=== PATIENT | male | born 1985 | race Caucasian/White ===

== ENCOUNTER → 2017-07-07 | Outpatient (CLI) | payer OTHER ==
[2017-07-07 12:26] LABS: AST/SGOT 12 U/L (15-37); BLOOD UREA NITROGEN 22 mg/dl (7-18); BUN/CREATININE RATIO 19.7 (10-20); CARBON DIOXIDE 29 mmol/L (21-32); CHLORIDE 105 mmol/L (98-107); GLUCOSE 81 mg/dl (70-99); POTASSIUM 3.9 mmol/L (3.5-5.1); SODIUM 141 mmol/L (136-145)
[2017-07-07 12:29] LABS: ALB/GLOB RATIO 1.2 (0.9-2); ALKALINE PHOSPHATASE 59 U/L (45-117); ALT/SGPT 26 U/L (12-78); CHOLESTEROL 210 mg/dl (0-200); HDL CHOLESTEROL 35 mg/dl; LDL CHOLESTEROL CALCULATED 161 mg/dl; TRIGLYCERIDES 71 mg/dl (0-150); VERY LOW DENSITY LIPOPROT CALC 14 mg/dl
== END | disposition home or self-care (01) ==
LOC: C.LAB 10:49
PROVIDERS: ATTEND Family Medicine Adult Medicine
DX: Z00.00 Encounter for general adult medical examination without abnormal findings (principal); Z13.220 Encounter for screening for lipoid disorders

== ENCOUNTER → 2018-06-28 | Outpatient (CLI) | payer OTHER ==
[~2018-06-28] MED LIST: CETI10TA10 PO; MULT-506 PO; PROB1TAB16 PO
[2018-06-28 13:13] LABS: BASO % 0.6 %; BASO ABS # 0.03 K/uL (0-0.2); EOS % 2.1 %; HEMATOCRIT 42.6 % (42-52); HEMOGLOBIN 14.9 g/dL (14.0-18.0); IG# 0.01 K/uL (0.00-0.02); LYMPH % 44.1 %; LYMPH ABS # 2.09 K/uL (1.2-3.4); MEAN CELL VOLUME 87.5 fL (80-100); MEAN CORPUSCULAR HEMOGLOBIN 30.6 pg (25-34); MEAN PLATELET VOLUME 9.4 fL (7.4-10.4); MONO % 8.9 %; MONO ABS # 0.42 K/uL (0.11-0.59); NEUT % 44.1 %; NEUT ABS # 2.09 K/uL (1.4-6.5); PLATELET COUNT 171 K/uL (130-400); RED CELL DISTRIBUTION WIDTH CV 13.6 % (11.5-14.5); RED CELL DISTRIBUTION WIDTH SD 43.6 fL (36.4-46.3); WHITE BLOOD COUNT 4.74 K/uL (4.8-10.8)
== END | disposition home or self-care (01) ==
LOC: C.LAB 12:09
PROVIDERS: ATTEND Registered Nurse
DX: Z00.00 Encounter for general adult medical examination without abnormal findings (principal); R10.9 Unspecified abdominal pain

== ENCOUNTER → 2018-07-12 | Day surgery (SDC) | payer OTHER ==
[2018-07-04 14:12] VITALS: Ht 174 cm; Wt 84.1 kg
[~2018-07-12] VITALS: Ht 174 cm; Wt 84.1 kg
[~2018-07-12] MED LIST changes: +LIDOCAINE HCL 2% 2 ML VIAL (20MG/ML) ONE; +MIDAZOLAM HCL 1 MG/ML 2ML VIAL ONE; +ONDANSETRON INJ 2 MG/ML 2 ML VIAL ONE; +PROPOFOL IV EMULSION 10 MG/ML 20 ML VIAL ONE; +SODIUM CHLORIDE 0.9% 500ML 500 ML IV ONE
--- NOTE | 2018-07-12 10:01 | Endo History and Physical ---
History & Physical Date of Service: Jul 12, 2018. Chief Complaint: Rectal Bleed Referring Physician: Nathalie Bojorquez History of Present Illness 32 yo CM who presents for colonoscopy secondary to rectal bleeding. Past Surgical History Hx Cardiac Surgery: No Hx Internal Defibrillator: No Hx Pacemaker: No Hx Abdominal Surgery: No Hx of Implantable Prosthesis: No Hx Post-Op Nausea and Vomiting: No Hx Cancer Surgery: No Hx Thoracic Surgery: No Hx Orthopedic: No Hx Urinary Tract Surgery: No Family History None Social History Smoking Status: Never Smoker Hx Substance Use: No Hx Alcohol Use: Yes (INFREQUENTLY) Allergies Coded Allergies: No Known Allergies (Unverified , 07/12/18) Current Medications Reported Home Medications Medications Dose Route/Sig Max Daily Dose Days Date Category Probiotic (Probiotic Product) 1 Tab Tab 1 Tab PO DAILY 07/04/18 Reported Multivitamin (Multivitamins) Tab 1 Tab PO DAILY 07/04/18 Reported Zyrtec (Cetirizine Hcl) 10 Mg Tab 10 Mg PO QAM 07/04/18 Reported Vital Signs Weight (Kilograms): 84.09 Height (Feet): 5 Height (Inches): 8.5 Physical Exam General Appearance: WD/WN, no apparent distress Respiratory/Chest: Auscultation: breath sounds normal Cardiovascular: Heart Auscultation: RRR Abdomen: Bowel Sounds: normal Inspection & Palpation: soft, non-distended, no tenderness, guarding & rebound Assessment and Plan Assessment: 32 yo CM who presents for colonoscopy secondary to rectal bleeding. Plan: Proceed with colonoscopy.
--- NOTE | 2018-07-12 10:59 | GI REPORT ---
Patient Name: Cesar Corral Procedure Date: 07/12/2018 10:11 AM Date of : 1985 Admit Type: Outpatient Age: 32 Gender: Male Attending MD: Gilbert Sierra DO Procedure: Colonoscopy Providers: Gilbert Sierra DO Referring MD: Lolita Gregg Indications: Rectal bleeding Medicines: Monitored Anesthesia Care Complications: No immediate complications. Estimated Blood Loss: Estimated blood loss: none. Procedure: Pre-Anesthesia Assessment: - Prior to the procedure, a History and Physical was performed, and patient medications and allergies were reviewed. The patient's tolerance of previous anesthesia was also reviewed. The risks and benefits of the procedure and the sedation options and risks were discussed with the patient. All questions were answered, and informed consent was obtained. Prior Anticoagulants: The patient has taken no previous anticoagulant or antiplatelet agents. ASA Grade Assessment: II - A patient with mild systemic disease. After reviewing the risks and benefits, the patient was deemed in satisfactory condition to undergo the procedure. After I obtained informed consent, the scope was passed under direct vision. Throughout the procedure, the patient's blood pressure, pulse, and oxygen saturations were monitored continuously. The Scope was introduced through the anus and advanced to the terminal ileum. The colonoscopy was performed without difficulty. The patient tolerated the procedure well. The quality of the bowel preparation was good. The terminal ileum, ileocecal valve, appendiceal orifice, and rectum were photographed. Findings: The perianal and digital rectal examinations were normal. Non-bleeding internal hemorrhoids were found during retroflexion. The hemorrhoids were small. Impression: - Non-bleeding internal hemorrhoids. - No specimens collected. Recommendation: - Resume previous diet. - Continue present medications. - Repeat colonoscopy at age 49 for surveillance. - Return to primary care physician as previously scheduled. Gilbert Sierra DO 07/12/2018 10:59:33 AM This report has been signed electronically. Note Initiated On: 07/12/2018 10:11 AM Number of Addenda: 0 I attest to the content of the Intraoperative Record and orders documented therein, exceptions below {[id number]}
--- NOTE | 2018-07-12 11:00 | Discharge Instructions ---
Endoscopy Patient Instructions Date / Procedure(s) Performed Jul 12, 2018. Colonoscopy Allergy Information Coded Allergies: No Known Allergies (Unverified , 07/12/18) Discharge Date / Findings Jul 12, 2018. Internal hemorrhoids Medication Instructions OK to resume all medications today as prescribed Reported Home Medications Medications Dose Route/Sig Max Daily Dose Days Date Category Probiotic (Probiotic Product) 1 Tab Tab 1 Tab PO DAILY 07/04/18 Reported Multivitamin (Multivitamins) Tab 1 Tab PO DAILY 07/04/18 Reported Zyrtec (Cetirizine Hcl) 10 Mg Tab 10 Mg PO QAM 07/04/18 Reported Provider Instructions Activity Restrictions - No exercising or heavy lifting for 24 hours. - Do not drink alcohol the day of the procedure. - Do not drive a car or operate machinery until the day after the procedure. - Do not make any important decisions or sign important papers in 24 hours after the procedure. Following Day: - Return to full activity which may include returning to work/school. Diet Start your diet with liquids and light foods (jello, soup, juice, toast). Then eat your usual diet if not nauseated. Treatment For Common After Affects For mild abdominal pain, bloating, or excessive gas: - Rest - Eat lightly - Lie on right side Follow-Up Information Follow-up with Nathalie Bojorquez as scheduled Anesthesia Information What You Should Know You have had a procedure that required some medicine to reduce anxiety and discomfort. This treatment is called moderate sedation. After receiving the treatment, you may be sleepy, but you will be able to breathe on your own. The effects of the treatment may last for several hours. Follow these instructions along with Activity/Diet recommendations noted above: * Do NOT do anything where dizziness or clumsiness would be dangerous. * Rest quietly at home today, then you can be up and about tomorrow. * Have a responsible person stay with you the rest of today. * You may have had an I.V. today. If so, you may take the dressing off later today. Recommendations Call your doctor if: * Trouble breathing * Continuous vomiting for more than 24 hours * Temperature above 101 degrees * Severe abdominal pain or bloating * Pain not relieved by pain medicine ordered * There is increased drainage or redness from any incision * A large amount of rectal bleeding greater than 2-3 tablespoons. (If you had a polyp/s removed or have hemorrhoids, a small amount of blood - from the rectum is to be expected.) * You have any unanswered questions or concerns. IN THE EVENT OF A SERIOUS EMERGENCY, GO TO THE NEAREST EMERGENCY ROOM Your discharge instructions were prepared by provider Gilbert Sierra. Patient Instructions Signature Page Cesar Corral Patient (or Guardian) Signature/Date: I have read and understand the instructions given to me by my caregivers. Caregiver/RN/Doctor Signature/Date: The above-named patient and/or guardian has received patient instructions on this date. + Original Patient Signature Page (only) stays with chart. Please make copy for patient.
[2018-07-12 11:31] VITALS: BP 157/109; PULSE 62; O2SAT 99
--- NOTE | 2018-07-12 11:42 | Anesthesiology Progress Note ---
Anesthesia Post Op Note Date & Time Jul 12, 2018 at 11:42 Vital Signs Pain Intensity: 0 Vital Signs Past 12 Hours Date Time Temp Pulse Resp B/P (MAP) Pulse Ox O2 Delivery O2 Flow Rate FiO2 07/12/18 11:31 62 18 157/109 (125) 99 Room Air 07/12/18 11:16 63 18 147/95 (112) 99 Room Air 07/12/18 11:01 82 16 143/92 (109) 95 Room Air 07/12/18 10:01 36.8 69 18 140/104 (116) 95 Room Air Notes Mental Status: alert / awake / arousable, participated in evaluation Pt Amnestic to Procedure: Yes Nausea / Vomiting: adequately controlled Pain: adequately controlled Airway Patency, RR, SpO2: stable & adequate BP & HR: stable & adequate Hydration State: stable & adequate Anesthetic Complications: no major complications apparent
== END | disposition home or self-care (01) ==
LOC: C.GI 09:25
PROVIDERS: ATTEND Internal Medicine
DX: K62.5 Hemorrhage of anus and rectum (principal); K64.8 Other hemorrhoids

== ENCOUNTER 2021-06-02 23:35 | Inpatient (IN) ==
[2021-06-02] MEDS ORDERED: KETOROLAC 30 MG/ML VIAL IV STA (23:56)
[2021-06-02] MEDS ORDERED: SODIUM CHLORIDE 0.9% 1000ML 1,000 ML IV ONE (23:56)
--- NOTE | 2021-06-02 23:58 | Emergency Department Note ---
Impression & Plan Sepsis, Lactic acidosis, Inguinal lymphadenopathy, Cellulitis of left leg ED Provider Note Name: MIRNA ROBLEDO Age: 35 Sex: M Arrives Via: Walk-In Informant: Patient ED Provider: Aman Onofre MD Chief Complaint: Chills Impression: Sepsis Lactic Acidosis Inguinal Lymphadenopathy Cellulitis left lower leg Medical Decision Makin yr old male with history of HTN, anxiety/depression, previous rectal fissure, IBS arrives with shaking chills. He is tachy, febrile and having rigors on arrival. Just had Tylenol about 1-2 hours prior to arrival. History of HTN, HLP, Anxiety/depression though no previous infectious issues other than rectal fissure requiring repair. He does look quite ill on arrival and thus on arrival cultures, lactate and sepsis work-up initiated. CXR without clear infiltrate. Labs with mild wbc elevation, modest lactate elevation. Covid negative as are Lyme and initial anaplasmosis. LFTs normal and normal platelets which makes me think tick borne less likely. He was given 3L NSS bolus along with empiric IV abx of zosyn/vanco. I did carefully give him a small dose of antihypertensive given he did not take evening meds and is quite hypertensive with slight improvement. Repeat Lactate is slightly higher than initially and thus further fluids as well as I discussed case with [facility] who agree with current treatment course. With continued fever and lactic acid elevation felt further imaging indicated thus CT c/a/p obtained. No PE nor pneumonia though there is evidence of lymphadenopathy inguinal and retroperitoneal. US left leg without DVT shows left inguinal lymphadenopathy. There is no evidence nec fasc nor crepitus nor fluctuance on left leg exam though he does have small abrasion left dotson with some lymphadenopathy above it, though no surrounding erythema/cellulitis definitively appreciated. Remained tachy though did improve some more with IV fluids, and eventually able to give him a dose IV tylenol once 6 hours post BUSINESS [employer] Tyelnol dose. Mild hypoxia noted which I suspect is BENITA related. Hospitalist in to evaluate further. Prior Medical Record and Triage/Nursing Notes reviewed by Me Additional history obtained from Patient's father Differentials:Viral syndrome, otitis, pharyngitis, pneumonia, influenza, meningitis, urinary tract infection, sepsis, bacteremia, as well as other pathologies. Vital Signs: reviewed and remarkable for fever, tachycardia Interventions: saline lock, nss bolus 4L IV + NSS gtt, zosyn 4.5gm iv, vanco 2gm iv, toradol iv, tylenol 1gm IV Labs:Reviewed and remarkable for elevated wbc, elevated lactate Imaging:X ray results are stated below per my interpretation: Chest: 1 view: No infiltrate, no effusion, normal cardiac border. [facility] Radiologist interpretation reviewed by me: CT Chest angio: no acute findings. CT A/P w iv: lymphadenopathy inguinal and retroperitoneal Cardiac/Tele Monitoring: Cardiac Monitoring: An Order was placed for continuous cardiac monitoring. The monitor shows a rate of 130 with a sinus tach rhythm. Consults:Dr Cherrie PRESSLEY Hospitalist Plan: Disposition:Hospitalization. Condition: Good History of Present Illness:35 yr old male arrives for evaluation of shaking chills. Patient notes feeling well throughout the day with sudden onset acute shaking chills. Notes feeling very weak and chills. Rapidly worsening. Took Tylenol at 11pm without improvement and came to ED for evaluation. Notes some chronic abdominal discomfort with IBS though minimal change from baseline. Notes left dotson abrasion which has been causing issues the last two weeks. States that he has been having cramping behind left thigh and in to groin for the last few days as well. No nausea, vomiting, syncope, headache, neck pain, neck stiffness, rashes, urinary/bowel issues, bruising, sob, chest pain, cough, runny nose, sore throat nor other symptoms. Nothing makes better nor worse. Notes seeing frequent ticks at his home but no recent tick bites noted. ROS: See above HPI for pertinent positives & negatives. A total of 10 systems reviewed and were otherwise negative. Past Medical History:Anxiety/Depression, HTN, GERD, HLP, IBS, Allergies Past Surgical History:Rectal Fissure (denies issues in last few years) Family History:as below Social History:Works in hospital IT, no drugs Home Medications:See Below Allergies:NKDA Vitals:Blood Pressure: 199/132, Pulse 111, RR 20, T 38.3C, O2 94% on RA Physical Exam: GENERAL: Patient is uncomfortable appearing and in mild distress. Very tired appearing and a bit shaky EYES: No scleral icterus, unremarkable pupils. ENT: Mucous membranes moist, no nasal congestion. NECK: No masses appreciated, nomeningismus, trachea is midline. RESPIRATORY: No dyspnea. Clear to auscultation and equal bilaterally. No wheeze, no rhonchi. CARDIOVASCULAR: Tachy.No murmurs, rubs, gallops appreciated. GASTROINTESTINAL: Abdomen soft, non-tender, no peritonitis.Bowel sounds positive.No masses appreciated. BACK: No midline tenderness, no CVA tenderness EXTREMITIES: Normal motion all extremities, no cyanosis, no edema. NEUROLOGIC: Alert and oriented, no acute motor or sensory deficits, no focal weakness, cranial nerves grossly intact. SKIN: No rash, no jaundice, no diaphoresis. PSYCH: Appropriate GCS: 15 ED Course: Times/Reassessments: gradual improvement in symptoms and HR Aman Onofre MD Past Med/Surg History Medical History Allergic rhinitis Anxiety and depression Chronic reflux esophagitis Hyperlipidemia LDL goal <130 Hypertension IBS (irritable bowel syndrome) Neurofibroma Surgical History History of rectal fissure Family History Grandmother (Paternal) Breast cancer Grandfather (Maternal) Skin cancer Father Thyroid disease Grandfather (Paternal) Myocardial infarction Denies family history of Ovarian cancer Prostate cancer Colorectal cancer Social History Smoking Status: Never smoker Second Hand Exposure: No; Hx Alcohol Use: Yes Alcohol type: hard liquor Alcohol Intake Frequency: Monthly or Less Hx Substance Use: No Preferred Language: Cuban Communication Ability: Effective Visual Impairment: Limited Hearing Ability: Normal 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 marital status: Current Living Situation: Spouse and Family Current Living Situation Comment: and two children current occupational status: employed current occupation: it security analyst at [employer] How many Children do You have: 3 Feels Safe at Home: Yes Childhood Exposure to Second-Hand Smoke: No caffeine: Yes Dental Care, Regularly: No Physical Activity Frequency: 3-4 Times per Week Seatbelt Use: always Sunscreen Use: Yes Allergies Allergies Allergy/AdvReac Type Severity Reaction Status Date / Time No Known Allergies Allergy Verified 06/03/21 01:21 Home Meds Home Medications Medication Instructions Recorded Confirmed multivitamin 1 tab PO DAILY 06/17/19 06/03/21 Previous Rx's Medication Instructions Recorded bupropion HCl 300 mg 24 hr tablet, 300 mg PO QAM #30 tab 04/25/21 extended release buspirone 10 mg tablet 10 mg PO BID #180 tab 04/25/21 hydrochlorothiazide 12.5 mg tablet 12.5 mg PO DAILY #30 tab 04/25/21 metoprolol succinate 100 mg 100 mg PO DAILY #90 tab 04/25/21 tablet,extended release 24 hr Results & Data (ED) Vital Signs Vital Signs - 24 hr 06/02/21 23:37 06/03/21 00:30 06/03/21 01:00 Temperature 38.3 C H Temperature Source Temporal Artery Scan Pulse Rate 111 H Pulse Rate [Apical] 109 H 109 H Pulse Rate from SpO2 Sensor Respiratory Rate 20 24 24 Respiratory Depth Normal Blood Pressure 199/132 H Blood Pressure [Right Arm] 180/117 H 185/110 H Blood Pressure Mean 154 Blood Pressure Mean [Right Arm] 138 135 Pulse Oximetry 94 95 95 Oxygen Delivery Method Room Air Oxygen Flow Rate Sepsis Recent Fever Within 48 Hours Yes Sepsis New/Unexplained Change in Mental Status N/A Sepsis Action Taken by Nursing No Action Required 06/03/21 01:18 06/03/21 01:30 06/03/21 02:00 Temperature Temperature Source Pulse Rate 117 H 117 H Pulse Rate [Apical] 118 H Pulse Rate from SpO2 Sensor 118 H 117 H Respiratory Rate 26 H 22 24 Respiratory Depth Blood Pressure 177/115 H 176/109 H Blood Pressure [Right Arm] 168/124 H Blood Pressure Mean 135 131 Blood Pressure Mean [Right Arm] 138 Pulse Oximetry 94 96 94 Oxygen Delivery Method Room Air Room Air Oxygen Flow Rate Sepsis Recent Fever Within 48 Hours Sepsis New/Unexplained Change in Mental Status Sepsis Action Taken by Nursing 06/03/21 02:34 06/03/21 02:58 06/03/21 04:03 Temperature 38.4 C H Temperature Source Oral Pulse Rate 127 H 125 H Pulse Rate [Apical] Pulse Rate from SpO2 Sensor 127 H 125 H Respiratory Rate 26 H 17 Respiratory Depth Blood Pressure 145/95 H 160/98 H Blood Pressure [Right Arm] Blood Pressure Mean 111 118 Blood Pressure Mean [Right Arm] Pulse Oximetry 95 95 Oxygen Delivery Method Room Air Oxygen Flow Rate Sepsis Recent Fever Within 48 Hours Sepsis New/Unexplained Change in Mental Status Sepsis Action Taken by Nursing 06/03/21 04:30 06/03/21 05:00 06/03/21 05:30 Temperature Temperature Source Pulse Rate 116 H 115 H 113 H Pulse Rate [Apical] Pulse Rate from SpO2 Sensor 116 H 115 H 113 H Respiratory Rate 29 H 29 H 27 H Respiratory Depth Blood Pressure 146/93 H 155/84 H 131/87 Blood Pressure [Right Arm] Blood Pressure Mean 110 107 101 Blood Pressure Mean [Right Arm] Pulse Oximetry 92 92 92 Oxygen Delivery Method Room Air Nasal Cannula Room Air Oxygen Flow Rate 2 2 Sepsis Recent Fever Within 48 Hours Sepsis New/Unexplained Change in Mental Status Sepsis Action Taken by Nursing 06/03/21 06:00 06/03/21 06:30 06/03/21 07:20 Temperature 37.1 C Temperature Source Pulse Rate 114 H 115 H Pulse Rate [Apical] 107 H Pulse Rate from SpO2 Sensor 115 H 116 H Respiratory Rate 30 H 20 20 Respiratory Depth Blood Pressure 138/85 129/84 Blood Pressure [Right Arm] 152/75 H Blood Pressure Mean 102 99 Blood Pressure Mean [Right Arm] 100 Pulse Oximetry 93 95 95 Oxygen Delivery Method Room Air Nasal Cannula Room Air Oxygen Flow Rate 2 2 Sepsis Recent Fever Within 48 Hours Sepsis New/Unexplained Change in Mental Status Sepsis Action Taken by Nursing Laboratory Data Result diagrams: 06/02/21 23:59 06/02/21 23:59 Lab Results 06/02/21 06/02/21 06/02/21 Range/Units 23:59 23:59 23:59 WBC 14.13 H (4.8-10.8) K/uL RBC 5.06 (4.7-6.1) M/uL Hgb 15.6 (14.0-18.0) g/dL Hct 44.8 (42-52) % MCV 88.5 (80-100) fL MCH 30.8 (25-34) pg MCHC 34.8 (32-36) g/dL RDW Std Deviation 40.4 (36.4-46.3) fL RDW Coeff of Dennis 12.6 (11.5-14.5) % Plt Count 225 (130-400) K/uL MPV 9.9 (7.4-10.4) fL Immature Gran % (Auto) 0.3 % Neut % (Auto) 83.6 % Lymph % (Auto) 10.2 % Morton % (Auto) 5.0 % Eos % (Auto) 0.8 % Baso % (Auto) 0.1 % Neut # (Auto) 11.81 H (1.4-6.5) K/uL Lymph # (Auto) 1.44 (1.2-3.4) K/uL Morton # (Auto) 0.70 H (0.11-0.59) K/uL Eos # (Auto) 0.12 (0-0.5) K/uL Baso # (Auto) 0.02 (0-0.2) K/uL Immature Gran # (Auto) 0.04 H (0.00-0.02) K/uL Sodium 137 (136-145) mmol/L Potassium 3.6 (3.5-5.1) mmol/L Chloride 106 (98-107) mmol/L Carbon Dioxide 28 (21-32) mmol/L Anion Gap 3.0 (3-11) BUN 22 H (7-18) mg/dl Creatinine 1.24 (0.6-1.4) mg/dl Est Cr Clr Drug Dosing 103.4 ml/min Est GFR ( Amer) 86.1 ml/min Est GFR (Non-Af Amer) 74.3 ml/min BUN/Creatinine Ratio 17.4 (10-20) Glucose 98 (70-99) mg/dl Lactate 2.2 H* (0.4-2.0) mmol/L Calcium 8.7 (8.5-10.1) mg/dl Total Bilirubin 0.4 (0.2-1) mg/dl Direct Bilirubin (0-0.2) mg/dl AST 25 (15-37) U/L ALT 40 (12-78) U/L Alkaline Phosphatase 81 (45-117) U/L Troponin I < 0.015 (0-0.045) ng/ml Total Protein 7.3 (6.4-8.2) gm/dl Albumin 3.7 (3.4-5.0) gm/dl Lipase 107 (73-393) U/L Procalcitonin (0-0.5) ng/ml Specimen Hemolysis Urine Color Urine Appearance (Clear) Urine pH (4.5-7.5) Ur Specific Garibaldi (1.000-1.030) Urine Protein (Negative) Urine Glucose (UA) (Negative) Urine Ketones (Negative) Urine Blood (Negative) Urine Nitrite (Negative) Urine Bilirubin (Negative) Urine Urobilinogen (Negative) Ur Leukocyte Esterase (Negative) Anaplasma Smear See Comment Lyme Disease IgG Ab (Negative) Lyme Disease IgM Ab (Negative) COVID-19 Eval Order SARS-CoV-2 (PCR) (Negative) 06/02/21 06/03/21 06/03/21 Range/Units 23:59 00:01 00:01 WBC (4.8-10.8) K/uL RBC (4.7-6.1) M/uL Hgb (14.0-18.0) g/dL Hct (42-52) % MCV (80-100) fL MCH (25-34) pg MCHC (32-36) g/dL RDW Std Deviation (36.4-46.3) fL RDW Coeff of Dennis (11.5-14.5) % Plt Count (130-400) K/uL MPV (7.4-10.4) fL Immature Gran % (Auto) % Neut % (Auto) % Lymph % (Auto) % Morton % (Auto) % Eos % (Auto) % Baso % (Auto) % Neut # (Auto) (1.4-6.5) K/uL Lymph # (Auto) (1.2-3.4) K/uL Morton # (Auto) (0.11-0.59) K/uL Eos # (Auto) (0-0.5) K/uL Baso # (Auto) (0-0.2) K/uL Immature Gran # (Auto) (0.00-0.02) K/uL Sodium (136-145) mmol/L Potassium (3.5-5.1) mmol/L Chloride (98-107) mmol/L Carbon Dioxide (21-32) mmol/L Anion Gap (3-11) BUN (7-18) mg/dl Creatinine (0.6-1.4) mg/dl Est Cr Clr Drug Dosing ml/min Est GFR ( Amer) ml/min Est GFR (Non-Af Amer) ml/min BUN/Creatinine Ratio (10-20) Glucose (70-99) mg/dl Lactate (0.4-2.0) mmol/L Calcium (8.5-10.1) mg/dl Total Bilirubin (0.2-1) mg/dl Direct Bilirubin (0-0.2) mg/dl AST (15-37) U/L ALT (12-78) U/L Alkaline Phosphatase (45-117) U/L Troponin I (0-0.045) ng/ml Total Protein (6.4-8.2) gm/dl Albumin (3.4-5.0) gm/dl Lipase (73-393) U/L Procalcitonin < 0.05 (0-0.5) ng/ml Specimen Hemolysis Urine Color Urine Appearance (Clear) Urine pH (4.5-7.5) Ur Specific Garibaldi (1.000-1.030) Urine Protein (Negative) Urine Glucose (UA) (Negative) Urine Ketones (Negative) Urine Blood (Negative) Urine Nitrite (Negative) Urine Bilirubin (Negative) Urine Urobilinogen (Negative) Ur Leukocyte Esterase (Negative) Anaplasma Smear Lyme Disease IgG Ab Negative (Negative) Lyme Disease IgM Ab Negative (Negative) COVID-19 Eval Order Covid19 at [facility] SARS-CoV-2 (PCR) NEGATIVE (Negative) 06/03/21 06/03/21 Range/Units 00:16 02:28 WBC (4.8-10.8) K/uL RBC (4.7-6.1) M/uL Hgb (14.0-18.0) g/dL Hct (42-52) % MCV (80-100) fL MCH (25-34) pg MCHC (32-36) g/dL RDW Std Deviation (36.4-46.3) fL RDW Coeff of Dennis (11.5-14.5) % Plt Count (130-400) K/uL MPV (7.4-10.4) fL Immature Gran % (Auto) % Neut % (Auto) % Lymph % (Auto) % Morton % (Auto) % Eos % (Auto) % Baso % (Auto) % Neut # (Auto) (1.4-6.5) K/uL Lymph # (Auto) (1.2-3.4) K/uL Morton # (Auto) (0.11-0.59) K/uL Eos # (Auto) (0-0.5) K/uL Baso # (Auto) (0-0.2) K/uL Immature Gran # (Auto) (0.00-0.02) K/uL Sodium (136-145) mmol/L Potassium (3.5-5.1) mmol/L Chloride (98-107) mmol/L Carbon Dioxide (21-32) mmol/L Anion Gap (3-11) BUN (7-18) mg/dl Creatinine (0.6-1.4) mg/dl Est Cr Clr Drug Dosing ml/min Est GFR ( Amer) ml/min Est GFR (Non-Af Amer) ml/min BUN/Creatinine Ratio (10-20) Glucose (70-99) mg/dl Lactate 2.7 H* (0.4-2.0) mmol/L Calcium (8.5-10.1) mg/dl Total Bilirubin (0.2-1) mg/dl Direct Bilirubin (0-0.2) mg/dl AST (15-37) U/L ALT (12-78) U/L Alkaline Phosphatase (45-117) U/L Troponin I (0-0.045) ng/ml Total Protein (6.4-8.2) gm/dl Albumin (3.4-5.0) gm/dl Lipase (73-393) U/L Procalcitonin (0-0.5) ng/ml Specimen Hemolysis Urine Color Yellow Urine Appearance Clear (Clear) Urine pH 6.0 (4.5-7.5) Ur Specific Garibaldi 1.015 (1.000-1.030) Urine Protein Negative (Negative) Urine Glucose (UA) Negative (Negative) Urine Ketones Negative (Negative) Urine Blood Negative (Negative) Urine Nitrite Negative (Negative) Urine Bilirubin Negative (Negative) Urine Urobilinogen Negative (Negative) Ur Leukocyte Esterase Negative (Negative) Anaplasma Smear Lyme Disease IgG Ab (Negative) Lyme Disease IgM Ab (Negative) COVID-19 Eval Order SARS-CoV-2 (PCR) (Negative) Administered Medications Sodium Chloride (Nss 1000ml) 1,000 mls @ 125 mls/hr IV .Q8H RIMA Stop: 07/03/21 02:59 Last Admin: 06/03/21 05:00 Dose: 125 mls/hr Documented by: [id number] Discontinued Medications Sodium Chloride (Nss 1000ml) 1,000 mls @ 999 mls/hr IV .Q1H1M ONE Stop: 06/03/21 00:56 Last Infusion: 06/03/21 01:19 Dose: 0 mls/hr Documented by: [id number] Admin: 06/03/21 00:24 Dose: 999 mls/hr Documented by: [id number] Sodium Chloride (Nss 1000ml) 1,000 mls @ 999 mls/hr IV .Q1H1M ONE Stop: 06/03/21 02:03 Last Infusion: 06/03/21 02:41 Dose: 0 mls/hr Documented by: [id number] Admin: 06/03/21 01:08 Dose: 999 mls/hr Documented by: [id number] Sodium Chloride (Nss 1000ml) 1,000 mls @ 999 mls/hr IV .Q1H1M ONE Stop: 06/03/21 02:14 Last Infusion: 06/03/21 03:55 Dose: 0 mls/hr Documented by: [id number] Admin: 06/03/21 02:41 Dose: 999 mls/hr Documented by: [id number] Piperacillin Sod/Tazobactam Sod (Zosyn) 4.5 gm in 120 mls @ 240 mls/hr IV NOW ONE Stop: 06/03/21 02:00 Last Infusion: 06/03/21 03:55 Dose: 0 mls/hr Documented by: [id number] Admin: 06/03/21 02:41 Dose: 240 mls/hr Documented by: [id number] Vancomycin HCl 2,250 mg/ (Sodium Chloride) 545 mls @ 200 mls/hr IV NOW ONE Stop: 06/03/21 04:14 Last Infusion: 06/03/21 07:20 Dose: 0 mls/hr Documented by: [id number] Admin: 06/03/21 04:19 Dose: 200 mls/hr Documented by: [id number] Sodium Chloride (Nss 1000ml) 1,000 mls @ 999 mls/hr IV .Q1H1M ONE Stop: 06/03/21 04:37 Last Infusion: 06/03/21 05:02 Dose: 0 mls/hr Documented by: [id number] Admin: 06/03/21 04:07 Dose: 999 mls/hr Documented by: [id number] Acetaminophen (Ofirmev) 1,000 mg in 100 mls @ 400 mls/hr IV NOW STA Stop: 06/03/21 03:58 Last Infusion: 06/03/21 04:22 Dose: 0 mls/hr Documented by: [id number] Admin: 06/03/21 04:07 Dose: 400 mls/hr Documented by: [id number] Ioversol (Optiray 320 125ml) 125 ml IV ONCE ONE Stop: 06/03/21 03:44 Last Admin: 06/03/21 03:44 Dose: 118 ml Documented by: [id number] Ketorolac Tromethamine (Ketorolac 30 Mg/Ml Vial) 30 mg IV NOW STA Stop: 06/02/21 23:57 Last Admin: 06/03/21 00:24 Dose: 30 mg Documented by: [id number] Labetalol HCl (Labetalol Hcl Iv 5 Mg/Ml 20ml) 10 mg IV NOW STA Stop: 06/03/21 01:04 Last Admin: 06/03/21 01:08 Dose: 10 mg Documented by: [id number] Cosigned by: [id number] Imaging Data Radiologist's Impression: Chest X-Ray 06/02/21 23:57 XR chest 1V portable HISTORY: 35 years-old Male fevers, rigors acute fever COMPARISON: CTA chest of same day TECHNIQUE: Portable AP view of the chest FINDINGS: Cardiac silhouette is upper limits of normal in size. There is no pneumothorax, pleural effusion, airspace consolidation or overt pulmonary edema. The bones of the chest appear grossly intact. IMPRESSION: No acute process. ACT 112: Negative or not required by law. The above report was generated using voice recognition software. It may contain grammatical, syntax or spelling errors. Electronically signed by: Lele Varela M.D. 06/03/2021 7:06 AM Venous Doppler Study 06/03/21 01:54 US venous doppler LE LT HISTORY: 35 years-old Male left leg swelling/pain acute pain and swelling of the left lower extremity COMPARISON: CT abdomen and pelvis of same day TECHNIQUE: Multiple real-time sonographic images of the left lower extremity deep venous structures were obtained assessing grayscale appearance, color and spectral flow FINDINGS: Normal flow, compressibility, phasicity and augmentation. Enlarged left inguinal chain lymph nodes measure up to 4.9 x 1.9 x 2.1 cm. IMPRESSION: 1. No sonographic evidence of deep venous thrombosis. 2. Left inguinal adenopathy. ACT 112: Negative or not required by law. The above report was generated using voice recognition software. It may contain grammatical, syntax or spelling errors. Electronically signed by: Lele Varela M.D. 06/03/2021 6:31 AM Discharge Plan Visit Data Chief Complaint: Illness Stated Complaint: Sudden Chills, Fever ED Provider: Aman Onofre Discharge Problem: Sepsis, Lactic acidosis, Inguinal lymphadenopathy, Cellulitis of left leg Forms Stand Alone Forms: [facility] Prescriptions Prescriptions: No Action buspirone 10 mg tablet 10 mg PO BID Qty: 180 RF: 3 bupropion HCl 300 mg tablet extended release 24 hr 300 mg PO QAM Qty: 30 RF: 6 metoprolol succinate 100 mg tablet extended release 24 hr 100 mg PO DAILY Qty: 90 RF: 3 hydrochlorothiazide 12.5 mg tablet 12.5 mg PO DAILY Qty: 30 RF: 2 multivitamin tablet 1 tab PO DAILY RF: 0 Referrals Referrals: Nathalie Bojorquez MD [Primary Care Provider] - Discharge Problem: Sepsis Qualifiers: Sepsis type: sepsis due to unspecified organism Sepsis acute organ dysfunction status: without acute organ dysfunction Qualified Code(s): A41.9 - Sepsis, unspecified organism
[2021-06-03 00:36] LABS: Appearance Urine Clear (Clear); Bilirubin Urine Negative (Negative); Blood Urine Negative (Negative); Color Urine Yellow; Glucose Urine UA Negative (Negative); Ketones Urine Negative (Negative); Leukocyte Esterase Urine Negative (Negative); Nitrite Urine Negative (Negative); Protein Urine Negative (Negative); Specific Gravity Urine 1.015 (1.000-1.030); Urobilinogen Urine Negative (Negative)
[2021-06-03 00:40] LABS: Basophils # (auto) 0.02 K/uL (0-0.2); Basophils % (auto) 0.1 %; Eosinophils # (auto) 0.12 K/uL (0-0.5); Eosinophils % (auto) 0.8 %; Hematocrit (blood only) 44.8 % (42-52); Hemoglobin 15.6 g/dL (14.0-18.0); Immature Granulocytes # (auto) 0.04 K/uL (0.00-0.02); Immature Granulocytes % (auto) 0.3 %; Lymphocytes # (auto) 1.44 K/uL (1.2-3.4); Lymphocytes % (auto) 10.2 %; Mean Corpuscular Hemoglobin 30.8 pg (25-34); Mean Corpuscular Hgb Conc 34.8 g/dL (32-36); Mean Corpuscular Volume 88.5 fL (80-100); Mean Platelet Volume 9.9 fL (7.4-10.4); Neutrophils # (auto) 11.81 K/uL (1.4-6.5); Neutrophils % (auto) 83.6 %; Platelet Count 225 K/uL (130-400); RDW Coefficient of Variation 12.6 % (11.5-14.5); RDW Standard Deviation 40.4 fL (36.4-46.3); Red Blood Count 5.06 M/uL (4.7-6.1); White Blood Count 14.13 K/uL (4.8-10.8)
[2021-06-03] MEDS ORDERED: LABETALOL HCL IV 5 MG/ML 20ML IV STA (01:03)
[2021-06-03] MEDS ORDERED: SODIUM CHLORIDE 0.9% 1000ML 1,000 ML IV ONE ×3 (01:03→03:37)
[2021-06-03 01:07] LABS: Alanine Aminotransferase 40 U/L (12-78); Albumin Level 3.7 gm/dl (3.4-5.0); Alkaline Phosphatase 81 U/L (45-117); Aspartate Aminotransferase 25 U/L (15-37); BUN Creatinine Ratio 17.4 (10-20); Bilirubin,Total 0.4 mg/dl (0.2-1); Blood Urea Nitrogen 22 mg/dl (7-18); Calcium 8.7 mg/dl (8.5-10.1); Carbon Dioxide 28 mmol/L (21-32); Chloride 106 mmol/L (98-107); Creatinine Clr Calc Pharmacy 103.4 ml/min; Est GFR (African American) 86.1 ml/min; Est GFR (Non-African American) 74.3 ml/min; Glucose 98 mg/dl (70-99); Lipase 107 U/L (73-393); Potassium 3.6 mmol/L (3.5-5.1); Sodium 137 mmol/L (136-145); Total Protein 7.3 gm/dl (6.4-8.2); Troponin I < 0.015 ng/ml (0-0.045)
[2021-06-03 01:22] LABS: Procalcitonin < 0.05 ng/ml (0-0.5)
[2021-06-03 01:28] LABS: Lyme Ab IgG w/WB Rflx Negative (Negative); Lyme Ab IgM w/WB Rflx Negative (Negative)
[2021-06-03] MEDS ORDERED: PIPERACILL/TAZOBAC CONSULT ACTIVE PRN ×2 (01:31→10:16)
[2021-06-03] MEDS ORDERED: VANCOMYCIN HCL 2,250 MG in SODIUM CHLORIDE 0.9% 500 ML IV ONE (01:31)
[2021-06-03] MEDS ORDERED: PIPERACILLIN/TAZOBACTAM 4.5 GM/120 ML BAG IV ONE (01:31)
[2021-06-03] MEDS ORDERED: VANCOMYCIN CONSULT ACTIVE PRN ×2 (01:31→10:16)
[2021-06-03] MEDS ORDERED: SODIUM CHLORIDE 0.9% 1000ML 1,000 ML IV SCH ×3 (03:00→13:12)
[2021-06-03] MEDS ORDERED: OPTIRAY 320 125ml IV ONE (03:43)
[2021-06-03] MEDS ORDERED: ACETAMINOPHEN 1,000 MG/100 ML VIAL IV STA (03:44)
--- NOTE | 2021-06-03 06:33 | Ultrasound Report ---
US venous doppler LE LT HISTORY: 35 years-old Male left leg swelling/pain acute pain and swelling of the left lower extremit y COMPARISON: CT abdomen and pelvis of same day TECHNIQUE: Multiple real-time sonographic images of the left lower extremity deep venous structures w ere obtained assessing grayscale appearance, color and spectral flow FINDINGS: Normal flow, compressibility, phasicity and augmentation. Enlarged left inguinal chain lymph nodes me asure up to 4.9 x 1.9 x 2.1 cm. IMPRESSION: 1. No sonographic evidence of deep venous thrombosis. 2. Left inguinal adenopathy. ACT 112: Negative or not required by law. The above report was generated using voice recognition software. It may contain grammatical, syntax o r spelling errors. Electronically signed by: Lele Varela M.D. 06/03/2021 6:31 AM
--- NOTE | 2021-06-03 07:08 | XRay Report ---
XR chest 1V portable HISTORY: 35 years-old Male fevers, rigors acute fever COMPARISON: CTA chest of same day TECHNIQUE: Portable AP view of the chest FINDINGS: Cardiac silhouette is upper limits of normal in size. There is no pneumothorax, pleural effusion, air space consolidation or overt pulmonary edema. The bones of the chest appear grossly intact. IMPRESSION: No acute process. ACT 112: Negative or not required by law. The above report was generated using voice recognition software. It may contain grammatical, syntax o r spelling errors. Electronically signed by: Lele Varela M.D. 06/03/2021 7:06 AM
--- NOTE | 2021-06-03 07:10 | History & Physical Report ---
Date of Service June 03, 2021 Assessment & Plan (1) Fever: Plan: Patient is on Doxycycline and Zosyn cultures were obtained crystalloid volume resuscitation was administered lactic acidosis is present but improved. PT has a abrasion to left lower extremity, and some mild erythema to lower leg, reportedly did have some drainage early on, now has back pain. Did have extensive work up including CT of Chest abd and pelvis and MRi of back plus Doppler of leg. no abnormalities were seen except hepatic steatosis, some unclear fat stranding around the adrenals but no other infectious concerns. Lyme and anaplasmosis were negative, blood cultures are pending. Decision to change vancomycin to doxycycline due to concern for tic borne illness(lack of clinical findings, child had tic bite) and negative MRSA nasal swab. Pt has diarrhea but history of IBDZ, stool studies pending. 06/04 sending BIofire and now Babesia, will also check CXR as stats now 90%, continues on Doxycycline and Zosyn (2) Anxiety and depression: Plan: Continue bupropion and buspirone (3) Hypertension: Plan: Typically on metoprolol and hydrochlorothiazide will continue metoprolol holding diuretics at this point (4) Chronic reflux esophagitis: (5) DVT prophylaxis: Plan: Lovenox for DVT prevention History of Present Illness Primary Care Provider: Nathalie Bojorquez MD 35 yr old male with history of HTN, anxiety/depression, previous rectal fissure, IBS arrives with shaking chills. He is tachy, febrile and having rigors on arrival. Just had Tylenol about 1-2 hours prior to arrival. Patient states that he did have a leg injury a few days ago through his jeans bumping the band of a table or something of such. This got red and and had some drainage. 1 day prior to admission he developed some posterior thigh pain and pain at the lower leg site of abrasion. And some left groin pain. These were evaluated in the ER with ultrasound showed no blood clot CT abdomen pelvis though did show some lymphadenopathy in left groin. It is complaint right now the patient is having lumbar spine pain without nuclear signs. He has no peripheral stigmata of endocarditis. He has been having a flare of his IBS more of liquid stool that has been clear Allergies Allergy/AdvReac Type Severity Reaction Status Date / Time No Known Allergies Allergy Verified 06/03/21 01:21 Home Medications Medication Instructions Recorded Confirmed Type multivitamin 1 tab PO DAILY 06/17/19 06/03/21 History bupropion HCl 300 mg 24 hr tablet, 300 mg PO QAM #30 tab 04/25/21 06/03/21 Rx extended release buspirone 10 mg tablet 10 mg PO BID #180 tab 04/25/21 06/03/21 Rx hydrochlorothiazide 12.5 mg tablet 12.5 mg PO DAILY #30 tab 04/25/21 06/03/21 Rx metoprolol succinate 100 mg 100 mg PO DAILY #90 tab 04/25/21 06/03/21 Rx tablet,extended release 24 hr Past Med/Surg History Medical History Allergic rhinitis Anxiety and depression Chronic reflux esophagitis Hyperlipidemia LDL goal <130 Hypertension IBS (irritable bowel syndrome) Neurofibroma Surgical History History of rectal fissure Family History Grandmother (Paternal) Breast cancer Grandfather (Maternal) Skin cancer Father Thyroid disease Grandfather (Paternal) Myocardial infarction Denies family history of Ovarian cancer Prostate cancer Colorectal cancer Social History Smoking Status: Never smoker Second Hand Exposure: No; Hx Alcohol Use: Yes Alcohol type: beer Alcohol Intake Frequency: Monthly or Less Hx Substance Use: No Preferred Language: Tristanian Communication Ability: Effective Visual Impairment: Limited Hearing Ability: Normal Parcel Post Officer Required: No Beliefs That Will Affect Care: None marital status: Current Living Situation: Spouse Current Living Situation Comment: and two children current occupational status: employed current occupation: [employer] security at [employer] How many Children do You have: 3 Feels Safe at Home: Yes Safety Concerns: Feels Safe At This Time Childhood Exposure to Second-Hand Smoke: No caffeine: Yes Dental Care, Regularly: No Physical Activity Frequency: 3-4 Times per Week Seatbelt Use: always Sunscreen Use: Yes Assistive Devices: None Review of Systems Review of Systems: Mild distress and fatigue no headache, no visual changes no speech or swallowing issues no chest pain, pressure or palpitations no shortness of breath, cough or wheezes no abdominal pain, nausea or vomiting, is having some diarrhea, clear liquids stools at times no dysuria, hematuria or frequency no focal joint pain or swelling lumbar back pain without radiation no bruising, bleeding or rashes no focal signs of weakness or numbness or altered sensation no complaints of anxiety or depression.. Physical Exam Physical Exam: The patient appeared well nourished and normally developed, he is uncomfortable, mostly complaining of back pain Vital signs as documented. Head exam is normocephalic atraumatic Neck is without JVD, thyromegaly, or carotid bruits. Lungs are clear to auscultation, no focal loss of breath sounds Cardiac exam, Rhythm is regular.. No murmurs, rubs or gallops. Abdominal exam reveals normal bowel sounds, soft non tender, no masses buttock fold examined no sign of immediate infection, purple flesh nodule on left buttock left lower extremity with small open area and surrounding erythema, no vascular streaking, no fluctuance or induration Neurologic exam is alert and oriented, no focal loss of strength or sensation Skin is with redness to the lower leg Psychologically is without concerns for anxiety or depression Results & Data Results & Data ([facility]) Vital Signs (Past 12 Hours) Vital Signs Temp Pulse Pulse Resp BP BP Pulse Ox 06/03/21 06:30 98.8 F 115 H 20 129/84 95 06/03/21 06:00 114 H 30 H 138/85 93 06/03/21 05:30 113 H 27 H 131/87 92 06/03/21 05:00 115 H 29 H 155/84 H 92 06/03/21 04:30 116 H 29 H 146/93 H 92 06/03/21 04:03 125 H 17 160/98 H 95 06/03/21 02:58 101.1 F H 06/03/21 02:34 127 H 26 H 145/95 H 95 06/03/21 02:00 117 H 24 176/109 H 94 06/03/21 01:30 117 H 22 177/115 H 96 06/03/21 01:18 118 H 26 H 168/124 H 94 06/03/21 01:00 109 H 24 185/110 H 95 06/03/21 00:30 109 H 24 180/117 H 95 06/02/21 23:37 100.9 F H 111 H 20 199/132 H 94 PG Care Time/CCT Total # of Minutes Spent Total Time Spent with Patient: Total time spent is greater than 50% in coordination of care (as documented) at patient's floor/unit and/or counseling patient: Coding Level of Care Code 60483 Initial Inpt Care Lvl 2 Diagnoses Anxiety and depression F41.9; F32.9 Hypertension I10 Chronic reflux esophagitis K21.0 DVT prophylaxis Z29.9 Fever R50.9
--- NOTE | 2021-06-03 08:00 | CT Scan Report ---
CT ANGIOGRAM OF THE CHEST CLINICAL HISTORY: Tachycardia, hypoxia. Possible acute pulmonary embolism COMPARISON STUDY: Chest x-ray dated 06/03/2021 TECHNIQUE: Following the IV administration of 118 mL of Optiray, CT angiogram of the thorax was perfo rmed from the thoracic inlet to the lung bases utilizing the pulmonary embolus protocol. Images are r eviewed in the axial, sagittal, and coronal planes. IV contrast was administered without complication . MIP imaging was performed. A dose lowering technique was utilized adhering to the principles of AL KATELYNN. CT DOSE: 2159.87 mGy.cm FINDINGS: There is hepatic steatosis No pathologically enlarged axillary mediastinal or hilar lymph nodes were visualized. There was no evidence of thoracic aortic dilatation. Pulmonary to opacification is slightly less than optimal. There are no pulmonary artery filling defec ts to indicate acute pulmonary embolism. No pleural effusions are visualized. There was no evidence of focal pulmonary consolidation. There is a 4 mm right lower lobe calcified granuloma IMPRESSION: 1. No evidence of acute pulmonary embolism 2. No evidence of thoracic aortic dilatation 3. No evidence of focal pulmonary consolidation 4. Hepatic steatosis ACT 112: Negative or not required by law. Electronically signed by: Chavo Lepe M.D. 06/03/2021 7:59 AM
--- NOTE | 2021-06-03 08:17 | CT Scan Report ---
CT abd pelvis IV con only CLINICAL HISTORY: sepsis, unknown etiology, bilateral back pain COMPARISON STUDY: MRI the pelvis dated 06/04/2020 TECHNIQUE: Patient was scanned in a dynamic helical fashion during intravenous administration of 118 cc of Optiray 320. A dose lowering technique was utilized adhering to the principles of ALARA. CT DOSE: FINDINGS: Lower chest: The heart is normal in size and configuration, without pericardial effusion. The lung ba ses and pleural spaces are clear. Liver: There is hepatic steatosis. There is a 4 mm hypodensity within the left hepatic lobe statistic ally representing a cyst. There is a very subtle 2 small to characterize 4 mm hypodensity within the right hepatic lobe inferiorly. Gallbladder: Borderline enlarged Spleen: Normal in size and attenuation. Pancreas: Unremarkable. Adrenal glands: No adrenal masses are visualized. There is subtle nonspecific infiltration of the per iadrenal fat bilaterally Kidneys: There is symmetric renal cortical enhancement. The kidneys are normal in size without hydron ephrosis. Bowel: There are no transition zones to indicate bowel obstruction. There is colonic diverticulosis. There is no evidence of acute diverticulitis. There is no evidence of acute appendicitis. Peritoneum: There is no intraperitoneal free air or abdominal ascites. Vasculature: The abdominal aorta is normal in course and caliber. Adenopathy: There are borderline enlarged inguinal lymph nodes. Pelvic viscera: The bladder, and pelvic viscera are unremarkable. Skeletal structures: No destructive osseous lesions are seen. IMPRESSION: 1. No evidence of bowel obstruction. No evidence of free air 2. Normal appendix. No evidence of acute diverticulitis 3. Hepatic steatosis and borderline splenomegaly 4. Nonspecific prominent inguinal lymph nodes. 5. Minimal infiltration of the fat surrounding the adrenal glands bilaterally, a finding of uncertain etiology and significance ACT 112: Negative or not required by law. Electronically signed by: Chavo Lepe M.D. 06/03/2021 8:15 AM
[2021-06-03] MEDS ORDERED: ONDANSETRON INJ 2 MG/ML 2 ML VIAL IV PRN (10:16)
[2021-06-03] MEDS ORDERED: ALUMINUM/MAGNESIUM SUSP 30 ML UDC PO PRN (10:16)
[2021-06-03] MEDS: ACETAMINOPHEN 325 MG TAB PO PRN ×2 (11:21→19:40)
--- NOTE | 2021-06-03 11:32 | Pharmacy Report ---
Pharmacy Abx Initial Consult - Date of Service June 03, 2021 - Pharmacy Dosing Scope Date of Consult: 06/03/21 Consultation requested by: Dr. Grier Pharmacy is consulted to initiate Vancomycin and zosyn IV dosing therapy, order appropriate labs and adjust drug dose/frequency. - Subjective The patient is a 35 year old M admitted on 06/03/21 07:15 with left leg cellulitis due to trauma to area. - Objective Height: 5 ft 9 in Weight: 115.8 kg Vital Signs (Past 12hrs): Vital Signs Temp Pulse Pulse Resp BP BP Pulse Ox 06/03/21 11:22 37.0 C 107 H 20 134/90 97 06/03/21 08:13 109 H 28 H 125/89 96 06/03/21 07:20 107 H 20 152/75 H 95 06/03/21 06:30 37.1 C 115 H 20 129/84 95 06/03/21 06:00 114 H 30 H 138/85 93 06/03/21 05:30 113 H 27 H 131/87 92 06/03/21 05:00 115 H 29 H 155/84 H 92 06/03/21 04:30 116 H 29 H 146/93 H 92 06/03/21 04:03 125 H 17 160/98 H 95 06/03/21 02:58 38.4 C H 06/03/21 02:34 127 H 26 H 145/95 H 95 06/03/21 02:00 117 H 24 176/109 H 94 06/03/21 01:30 117 H 22 177/115 H 96 06/03/21 01:18 118 H 26 H 168/124 H 94 06/03/21 01:00 109 H 24 185/110 H 95 06/03/21 00:30 109 H 24 180/117 H 95 06/02/21 23:37 38.3 C H 111 H 20 199/132 H 94 Lab Results (24hrs): Laboratory Tests (24 Hours) 06/02/21 06/02/21 06/02/21 23:59 23:59 23:59 WBC 14.13 H Neut # (Auto) 11.81 H Creatinine 1.24 Est Cr Clr Drug Dosing 103.4 Procalcitonin < 0.05 Micro Results: 06/03/21 00:42 Aerobic Blood Culture - Pending Blood Anaerobic Blood Culture - Pending 06/02/21 23:59 Aerobic Blood Culture - Pending Blood Anaerobic Blood Culture - Pending - Risk Factors for Resistance * Resident in a usp or extended-care facility * Hospitalization for 48 hours or more within the past 90 days * Current hospitalization > 5 days * Chronic dialysis within the past 30 days * Immunocompromised (chronic steroid therapy, chemotherapy, immunomodulators) * History of infection with a multidrug-resistant organism: [organism] [site of infection] [date] * Antimicrobial use within the last 90 days [include specific drugs, if known] - Assessment & Plan Assessment 35 year old M admitted with left leg cellulitis, blood cultures pending, WBC elevated, lactate elevated, starting IV Vancomycin and Zosyn. Plan Vancomycin and Zosyn for treatment of cellulitis Vancomycin IV * Estimated PK Parameters: Vd 0.6 L/kg, Siddharth 0.087 hr-1, t1/2 8hr * Loading dose: 2250 mg (20 mg/kg) * Maintenance dose: 1750 mg IV (15 mg/kg) every 8 hours * Goal trough level for cellulitis : ~15 mcg/mL * Trough level ordered for 06/04/21 prior to 1200 dose Piperacillin/tazobactam * 4.5 g bolus administered over 30 minutes, then 4.5 g IV extended infusion every 8 hours for CrCl greater than 20 mL/min * Aggressive dosing selected due to BMI >35 Pharmacy will continue to follow and will adjust dose/frequency as necessary. Thank you.
[2021-06-03] MEDS ORDERED: VANCOMYCIN HCL 1,750 MG in SODIUM CHLORIDE 0.9% 500 ML IV SCH (12:00)
[2021-06-03] MEDS ORDERED: GADOBUTROL 65ML VIAL IV ONE (12:06)
[2021-06-03] MEDS ORDERED: HYDROmorphone INJ 1 MG/ML SYRINGE IV PRN (12:25)
[2021-06-03] MEDS: busPIRone 5 MG TAB PO SCH ×2 (12:39→21:27)
[2021-06-03] MEDS: buPROPion XL 300 MG TABCR PO SCH (12:39)
[2021-06-03] MEDS: ENOXAPARIN INJ 40 MG/0.4 ML SYR SQ SCH (12:40)
[2021-06-03] MEDS: METOPROLOL SUCC 50MG EXT REL TAB PO SCH (12:40)
[2021-06-03] MEDS: PIPERACILLIN/TAZOBACTAM 4.5 GM in DEXTROSE 5% 100 ML IV SCH ×2 (12:40→18:14)
[2021-06-03] MEDS: MULTIVITAMIN TAB PO SCH (12:40)
--- NOTE | 2021-06-03 12:41 | Magnetic Resonance Report ---
MR lumbar spine wo/w con CLINICAL HISTORY: 35 years-old Male with eval for epidural abscess. Acute low back pain with fever COMPARISON: CT abdomen pelvis and CTA chest study is of same day, MR pelvis 06/04/2020. TECHNIQUE: Multiplanar, multi sequence MRI of the lumbar spine was performed without intravenous cont rast. FINDINGS: Account Leader localizer images demonstrate no gross extraspinal abnormality. The imaged intra-abdominal and p araspinal tissues demonstrate no acute abnormality. A signal within the imaged thoracic spinal cord i s normal. The conus medullaris terminates at L1-L2. Unremarkable cauda equina. No acute fracture, sub luxation, bone marrow edema or endplate erosion. No epidural fluid collections. Postcontrast images a re motion degraded. No abnormal enhancement identified. No significant discogenic degeneration, spond ylitic spurring and facet arthrosis. T12-L1: No central canal or neural foraminal stenosis. L1-L2: No central canal or neural foraminal stenosis. L2-L3: No central canal or neural foraminal stenosis. L3-L4: No central canal or neural foraminal stenosis. L4-L5: No central canal or neural foraminal stenosis. L5-S1: Tiny posterior annular disc bulge. No central canal or neural foraminal stenosis. IMPRESSION: 1. Unremarkable MRI of the lumbar spine. 2. No endplate erosions, epidural fluid collections or abnormal enhancement. ACT 112: Negative or not required by law. The above report was generated using voice recognition software. It may contain grammatical, syntax o r spelling errors. Electronically signed by: Lele Varela M.D. 06/03/2021 12:40 PM
[2021-06-03] MEDS: HYDROmorphone INJ 0.5 MG/0.5 ML SYR IV PRN ×2 (12:48→18:17)
[2021-06-03 17:01] LABS: Hematocrit (blood only) 38.9 % (42-52); Hemoglobin 13.2 g/dL (14.0-18.0); Mean Corpuscular Hemoglobin 29.9 pg (25-34); Mean Corpuscular Hgb Conc 33.9 g/dL (32-36); Mean Platelet Volume 9.2 fL (7.4-10.4); Platelet Count 146 K/uL (130-400); RDW Standard Deviation 41.8 fL (36.4-46.3); Red Blood Count 4.42 M/uL (4.7-6.1); White Blood Count 13.91 K/uL (4.8-10.8)
[2021-06-03 17:18] LABS: BUN Creatinine Ratio 10.1 (10-20); Calcium 6.6 mg/dl (8.5-10.1); Creatinine Clr Calc Pharmacy 109.6 ml/min; Est GFR (African American) 92.4 ml/min; Est GFR (Non-African American) 79.7 ml/min; Potassium 3.8 mmol/L (3.5-5.1)
[2021-06-03] MEDS ORDERED: BACLOFEN 10 MG TAB PO PRN (20:34)
[2021-06-03] MEDS: DOXYCYCLINE HYCLATE 100 MG in DEXTROSE 5% 100 ML IV SCH (21:04)
[2021-06-04] MEDS: PIPERACILLIN/TAZOBACTAM 4.5 GM in DEXTROSE 5% 100 ML IV SCH ×3 (02:42→20:02)
[2021-06-04] MEDS: ACETAMINOPHEN 325 MG TAB PO PRN (04:59)
[2021-06-04 07:47] LABS: Hematocrit (blood only) 37.9 % (42-52); Hemoglobin 12.8 g/dL (14.0-18.0); Mean Corpuscular Hemoglobin 29.7 pg (25-34); Mean Corpuscular Hgb Conc 33.8 g/dL (32-36); Mean Corpuscular Volume 87.9 fL (80-100); Platelet Count 156 K/uL (130-400); RDW Coefficient of Variation 13.1 % (11.5-14.5); RDW Standard Deviation 42.5 fL (36.4-46.3); Red Blood Count 4.31 M/uL (4.7-6.1); White Blood Count 9.87 K/uL (4.8-10.8)
[2021-06-04] MEDS ORDERED: KETOROLAC 30 MG/ML VIAL IV PRN (07:52)
[2021-06-04] MEDS: DOXYCYCLINE HYCLATE 100 MG in DEXTROSE 5% 100 ML IV SCH (08:17)
[2021-06-04] MEDS: busPIRone 5 MG TAB PO SCH ×2 (08:17→20:44)
[2021-06-04 08:21] LABS: BUN Creatinine Ratio 9.1 (10-20); Calcium 7.6 mg/dl (8.5-10.1); Creatinine Clr Calc Pharmacy 110.3 ml/min; Est GFR (African American) 92.4 ml/min; Est GFR (Non-African American) 79.7 ml/min; Potassium 3.3 mmol/L (3.5-5.1)
--- NOTE | 2021-06-04 08:31 | XRay Report ---
XR chest 1V portable HISTORY: hypoxia COMPARISON: Chest 06/03/2021. FINDINGS: There are low lung volumes. The cardiac silhouette remains borderline enlarged. This may be accentuated by the low lung volumes. No pleural effusions. No pneumothorax. Left basilar linear dens ities favor subsegmental atelectasis. No evidence for pulmonary edema. IMPRESSION: Low lung volumes with left basilar linear densities suggesting subsegmental atelectasis. Otherwise, n o focal lung consolidations to suggest pneumonia. ACT 112: Negative or not required by law. Electronically signed by: Reyes Babcock M.D. 06/04/2021 8:29 AM
[2021-06-04] MEDS: MULTIVITAMIN TAB PO SCH (08:59)
[2021-06-04] MEDS: METOPROLOL SUCC 50MG EXT REL TAB PO SCH (08:59)
[2021-06-04] MEDS: buPROPion XL 300 MG TABCR PO SCH (09:00)
[2021-06-04] MEDS: ENOXAPARIN INJ 40 MG/0.4 ML SYR SQ SCH (09:00)
[2021-06-04] MEDS ORDERED: POTASSIUM CHLORIDE CRTAB 20 MEQ TABCR PO STA (09:33)
[2021-06-04 09:48] LABS: Adenovirus PCR Not Detected (NotDetected); Bordetella parapertussis PCR Not Detected (NotDetected); Bordetella pertussis PCR Not Detected (NotDetected); Chlamydia pneumoniae PCR Not Detected (NotDetected); Coronavirus 229E PCR Not Detected (NotDetected); Coronavirus CoV-2 (COVID19)PCR Not Detected (NotDetected); Coronavirus HKU1 PCR Not Detected (NotDetected); Coronavirus NL63 PCR Not Detected (NotDetected); Coronavirus OC43PCR Not Detected (NotDetected); Human Metapneumovirus PCR Not Detected (NotDetected); Influenza A PCR Not Detected (NotDetected); Influenza B PCR Not Detected (NotDetected); Mycoplasma pneumoniae PCR Not Detected (NotDetected); Parainfluenza Virus 1 PCR Not Detected (NotDetected); Parainfluenza Virus 2 PCR Not Detected (NotDetected); Parainfluenza Virus 3 PCR Not Detected (NotDetected); Parainfluenza Virus 4 PCR Not Detected (NotDetected); Respiratory Syncytial VirusPCR Not Detected (NotDetected); Rhinovirus/Enterovirus PCR Not Detected (NotDetected)
[2021-06-04] MEDS ORDERED: VANCOMYCIN TROUGH ONE (11:30)
[2021-06-04] MEDS ORDERED: BACITRACIN OINT 15 GM TUBE EXT PRN (11:50)
[2021-06-04] MEDS ORDERED: VANCOMYCIN CONSULT ACTIVE PRN (11:51)
[2021-06-04] MEDS ORDERED: VANCOMYCIN HCL 2,000 MG in SODIUM CHLORIDE 0.9% 500 ML IV ONE (12:30)
[2021-06-04] MEDS: SACCHAROMYCES BOULARDII 250 MG CAP PO SCH (14:19)
[2021-06-04] MEDS ORDERED: LORazepam 0.5 MG/1 ML VIAL IV PRN (15:43)
[2021-06-04] MEDS ORDERED: LORazepam 2 MG/4 ML VIAL ONE (15:48)
[2021-06-04] MEDS: LOPERAMIDE HCL 2 MG CAP PO SCH ×2 (15:53→20:03)
--- NOTE | 2021-06-04 15:54 | Hospitalist Progress Note ---
Date of Service June 04, 2021 Assessment & Plan (1) Fever: Plan: Patient is on vancomycin and Zosyn cultures were obtained crystalloid volume resuscitation was administered lactic acidosis was present but improved. PT has a abrasion to left lower extremity, and some mild erythema to lower leg, reportedly did have some drainage early on, this was unroofed on 06/04 and base of the small ulceration was cultured Did have extensive work up including CT of Chest abd and pelvis and MRi of back plus Doppler of leg. no abnormalities were seen except hepatic steatosis, some unclear fat stranding around the adrenals but no other infectious concerns. Lyme and anaplasmosis were negative, bio fire is negative Babesia smear pending, blood cultures are pending. Patient does not have any pneumonia on chest x-ray Pt has diarrhea but history of IBDZ, stool studies pending. C. difficile is negative Sed rate is low Procalcitonin is negative cellulitis of his lower leg vancomycin is now reinstituting continues as well as Zosyn therapy with cultures hopefully guiding us. (2) Anxiety and depression: Plan: Continue bupropion and buspirone (3) Back pain: Plan: Patient back pain seems musculoskeletal pathology within his spine is ruled out by MRI using baclofen and as needed pain medications to help his discomfort (4) Hypertension: Plan: Typically on metoprolol and hydrochlorothiazide will continue metoprolol holding diuretics at this point (5) Chronic reflux esophagitis: (6) DVT prophylaxis: Plan: Lovenox for DVT prevention Admission and Anticipated Discharge Date Admission Date: June 03, 2021 Subjective Patient states he feels better he still looks fatigued and washed out his leg is still erythematous. No far cultures were not been revealing. His white blood cell count is come down carbadox it has been stable peripherally however an incident of anion gap to suggest profound lactic acidosis bio fire is negative for all pathogens at this time chest x-ray is unremarkable Review of Systems Review of Systems: Mild distress and fatigue no headache, no visual changes no speech or swallowing issues no chest pain, pressure or palpitations no shortness of breath, cough or wheezes no abdominal pain, nausea and persistent clear liquidy diarrhea no dysuria, hematuria or frequency no focal joint pain or swelling Musculoskeletal low back pain without radiation Erythema to his left lower leg with a 1 to 2 cm abrasion which is crusted over no focal signs of weakness or numbness or altered sensation no complaints of anxiety or depression.. Physical Exam Physical Exam: The patient appeared well nourished and normally developed. He appears fatigued and worn out Vital signs as documented. Head exam is normocephalic atraumatic Neck is without JVD, thyromegaly, or carotid bruits. Lungs are clear to auscultation, no focal loss of breath sounds Cardiac exam, Rhythm is regular.. No murmurs, rubs or gallops. Abdominal exam reveals normal bowel sounds, soft nondescript tenderness no rebound no guarding Left lower extremity from the knee down no circumferential erythema which blanches there is a 1 1/2 to 2 cm abrasion which is crusted over After verbal consent this area was cleaned with alcohol. The crusting was unroofed with a sterile 18-gauge needle at the base of this lesion was cultured with a sterile culture. Neurologic exam is alert and oriented, no focal loss of strength or sensation no radiation of back pain symptoms Skin is with erythema to his left lower extremity with abrasion/small wound as above Psychologically is without concerns for anxiety or depression Results & Data Results & Data ([facility]) Vital Signs (Past 12 Hours) Vital Signs Temp Pulse Resp BP BP Pulse Ox 06/04/21 15:42 98.4 F 87 20 166/113 H 97 06/04/21 15:38 161/126 H 06/04/21 12:13 98.2 F 75 20 150/97 H 95 06/04/21 08:14 98.6 F 80 20 131/82 92 06/04/21 05:45 99.3 F 06/04/21 04:18 100.4 F H 96 H 20 146/93 H 90 PG Care Time/CCT Total # of Minutes Spent Total Time Spent with Patient: Total time spent is greater than 50% in coordination of care (as documented) at patient's floor/unit and/or counseling patient: Coding Level of Care Code 81631 Subseq Hosp Care Lvl 2 Diagnoses Fever R50.9 Anxiety and depression F41.9; F32.9 Hypertension I10 Chronic reflux esophagitis K21.0 DVT prophylaxis Z29.9 Back pain M54.9
[2021-06-04] MEDS: hydrALAZINE HCL 20 MG/ML VIAL IV PRN ×2 (16:56→17:14)
[2021-06-04 18:44] LABS: Appearance Urine Clear (Clear); Bilirubin Urine Negative (Negative); Blood Urine Negative (Negative); Color Urine Yellow; Glucose Urine UA Negative (Negative); Ketones Urine Negative (Negative); Leukocyte Esterase Urine Negative (Negative); Nitrite Urine Negative (Negative); Protein Urine Negative (Negative); Specific Gravity Urine 1.005 (1.000-1.030); Urobilinogen Urine Negative (Negative); pH Urine 7.5 (4.5-7.5)
[2021-06-04] MEDS: VANCOMYCIN HCL 1,250 MG in SODIUM CHLORIDE 0.9% 250 ML IV SCH (20:03)
[2021-06-05] MEDS: LOPERAMIDE HCL 2 MG CAP PO SCH ×3 (00:15→08:06)
[2021-06-05] MEDS: PIPERACILLIN/TAZOBACTAM 4.5 GM in DEXTROSE 5% 100 ML IV SCH (03:13)
[2021-06-05] MEDS: VANCOMYCIN HCL 1,250 MG in SODIUM CHLORIDE 0.9% 250 ML IV SCH (03:14)
[2021-06-05 06:53] LABS: Calcium 8.4 mg/dl (8.5-10.1); Creatinine Clr Calc Pharmacy 112.8 ml/min; Est GFR (African American) 97.4 ml/min; Est GFR (Non-African American) 84.1 ml/min; Potassium 3.4 mmol/L (3.5-5.1)
[2021-06-05] MEDS: SACCHAROMYCES BOULARDII 250 MG CAP PO SCH (08:07)
[2021-06-05] MEDS: METOPROLOL SUCC 50MG EXT REL TAB PO SCH (08:07)
[2021-06-05] MEDS: buPROPion XL 300 MG TABCR PO SCH (08:07)
[2021-06-05] MEDS: busPIRone 5 MG TAB PO SCH (08:08)
[2021-06-05] MEDS: ENOXAPARIN INJ 40 MG/0.4 ML SYR SQ SCH (08:09)
[2021-06-05] MEDS: MULTIVITAMIN TAB PO SCH (08:53)
[2021-06-05] MEDS ORDERED: LINEZOLID CONSULT ACTIVE PRN (11:05)
[2021-06-05] MEDS ORDERED: VANCOMYCIN TROUGH ONE (11:30)
[2021-06-05] MEDS ORDERED: LINEZOLID 600 MG TAB PO ONE (12:00)
--- NOTE | 2021-06-05 13:40 | Discharge Summary ---
Date of Service June 05, 2021 Admission HPI Per Admitting Provider 35 yr old male with history of HTN, anxiety/depression, previous rectal fissure, IBS arrives with shaking chills. He is tachy, febrile and having rigors on arrival. Just had Tylenol about 1-2 hours prior to arrival. Patient states that he did have a leg injury a few days ago through his jeans bumping the band of a table or something of such. This got red and and had some drainage. 1 day prior to admission he developed some posterior thigh pain and pain at the lower leg site of abrasion. And some left groin pain. These were evaluated in the ER with ultrasound showed no blood clot CT abdomen pelvis though did show some lymphadenopathy in left groin. It is complaint right now the patient is having lumbar spine pain without nuclear signs. He has no peripheral stigmata of endocarditis. He has been having a flare of his IBS more of liquid stool that has been clear Principal Diagnosis left leg cellulitis possible staph Discharge Exam The patient appeared well Vital signs as documented. Lungs are clear to auscultation and appear unlabored Cardiac exam, Rhythm is regular.. No murmurs, rubs or gallops. Abdominal exam reveals normal bowel sounds, soft non tender, no masses Left leg erythema is improved, small open area, some tender spots Neurologic exam is alert and oriented, no focal loss of strength or sensation Skin is without bruises or rashes Psychologically is without concerns for anxiety or depression. Discharge Data Allergies Allergy/AdvReac Type Severity Reaction Status Date / Time No Known Allergies Allergy Verified 06/03/21 01:21 Consultations 06/03/21 01:26 ED Decision to Admit Stat Ordered Studies 06/03/21 01:54 US venous doppler LE LT Urgent 06/03/21 02:59 CT abd pelvis IV con only Urgent CT angio chest PE protocol Urgent 06/03/21 08:12 MR lumbar spine wo/w con Stat Hospital Course (1) Fever: Patient is on vancomycin and Zosyn cultures were obtained crystalloid volume resuscitation was administered lactic acidosis was present but improved. PT has a abrasion to left lower extremity, and some mild erythema to lower leg, reportedly did have some drainage early on, this was unroofed on 06/04 and base of the small ulceration was cultured Did have extensive work up including CT of Chest abd and pelvis and MRi of back plus Doppler of leg. no abnormalities were seen except hepatic steatosis, some unclear fat stranding around the adrenals but no other infectious concerns. Lyme and anaplasmosis were negative, bio fire is negative Babesia smear pending, blood cultures are pending. Patient does not have any pneumonia on chest x-ray Pt has diarrhea but history of IBDZ, stool studies pending. C. difficile is negative Sed rate is low Procalcitonin is negative leg seems to have improved the most after restarting vanco, will have home on linezolid, following cultures (2) Anxiety and depression: Continue bupropion and buspirone (3) Back pain: Patient back pain seems musculoskeletal pathology within his spine is ruled out by MRI using baclofen and as needed pain medications to help his discomfort encouraged to have some core strengthening once he recovers (4) Hypertension: Typically on metoprolol and hydrochlorothiazide will continue metoprolol holding diuretics at this point (5) Chronic reflux esophagitis: Total Time Total Time Spent Total Time Spent (In Minutes): less than 30 minutes were required to prepare summary Discharge Plan Discharge Items Patient Disposition: Home - Self-Care Reason For Visit: SEPSIS,LEG CELLULITIS Discharge Diagnosis: left lower extremity cellulitis sepsis Activity: Per Instructions section Activity Comment: elevate leg as much as able Non-emergency contact: Primary Care Provider Call non-emergency contact if: you have any medication questions, your symptoms worsen and you have a fever Follow-up/Referrals: Nathalie Bojorquez MD [Primary Care Provider] - 06/13/21 3:00 pm Diet: Regular Addtl Attending Provider Instructions: when resting elevate leg as much as possible wash open wound daily with soap and water, use antibiotic ointment and keep covered until closed Pending Studies at Discharge: Yes Studies:: final culture results are pending Stand-Alone Forms: My [employer], Smoking Cessation Medications and DC Order Prescriptions: New baclofen 10 mg Tablet 10 mg PO TID PRN (Reason: back pain) Qty: 10 RF: 0 linezolid 600 mg tablet 600 mg PO BID 7 Days Qty: 14 RF: 0 Continued buspirone 10 mg tablet 10 mg PO BID Qty: 180 RF: 3 bupropion HCl 300 mg tablet extended release 24 hr 300 mg PO QAM Qty: 30 RF: 6 metoprolol succinate 100 mg tablet extended release 24 hr 100 mg PO DAILY Qty: 90 RF: 3 hydrochlorothiazide 12.5 mg tablet 12.5 mg PO DAILY Qty: 30 RF: 2 multivitamin tablet 1 tab PO DAILY RF: 0 Discharge Orders: Discharge Order (Routine); Ordered 06/05/21 Ordered By: Guicho Grier Admission Data Admit Date/Time: 06/03/21 07:15 Attending Provider: Guicho Grier Admit Provider: Guicho Grier Primary Care Provider: Nathalie Bojorquez Other Providers: Kaleb Corral Other Interventions: Discharge Summary Assessment (RN) Last Done: 06/05/21 10:46 Coding Level of Care Code D/C DAY MANAGEMENT <30 MINS Diagnoses Fever R50.9 Anxiety and depression F41.9; F32.9 Back pain M54.9 Hypertension I10 Chronic reflux esophagitis K21.0
[2021-06-08 21:11] LABS: Babesia microti IgG <1:64 titer (<1:64)
== END 2021-06-05 13:36 | disposition home or self-care (01) | DRG 602 ==
LOC: ED 23:35 → 2N 06-03 07:15